=== PATIENT | female | born 1945 | race Caucasian/White ===

== ENCOUNTER 2018-11-11 08:45 | Emergency (ER) | payer MEDICARE, OTHER ==
[~2018-11-11] VITALS: Wt 79.5 kg
[2018-11-11 08:48] VITALS: BP 182/84; PULSE 83; RESP 20
[2018-11-11] MEDS ORDERED: BENZ-6 PO (09:42)
[2018-11-11] MEDS ORDERED: AMOX500C2 PO (09:42)
[2018-11-11] MEDS ORDERED: PROM6.2515 PO (09:42)
[2018-11-11] MEDS ORDERED: PSEU-79 PO (09:42)
--- NOTE | 2018-11-11 14:05 | ERD ---
ER Documentation Chief Complaint Chief Complaint cough for the past 6 wks. orthopnea and mucus. no releif with otc meds HPI 73-year-old female presenting with a cough for the last 6 weeks. Patient is states that she has lots of congestion. She denies any fevers. Patient has a serious case of OCD and she is very adamant about not taking excessive medications. Patient is concerned about missing the emergency room and she is resistant to many medications. She has lots of sensitivities and states that her OCD has worsened. She denies any suicidal homicidal ideations. Denies medical problems. Adverse reaction to the Z-Dmaian and does not want medication. Social history denies. Surgical history denies ROS All systems reviewed and are negative except as per history of present illness. Medications Home Meds Active Scripts Pseudoephedrine Hcl* (Suphedrin*) 30 Mg Tablet, 30 MG PO Q6 PRN for CONGESTION, #30 TAB Prov:SELAM DUCKWORTH PA-C 11/11/18 Amoxicillin* (Amoxicillin*) 500 Mg Cap, 500 MG PO BID for 7 Days, CAP Prov:SELAM DUCKWORTH PA-C 11/11/18 Promethazine Hcl* (Promethazine Hcl* Syrup) 6.25 Mg/5 Ml Syrup, 6.25 MG PO Q6H PRN for COUGH, #100 ML Prov:SELAM DUCKWORTH PA-C 11/11/18 Benzonatate* (Tessalon Perle*) 100 Mg Capsule, 100 MG PO Q8H PRN for COUGH, #30 CAP Prov:SELAM DUCKWORTH PA-C 11/11/18 PMhx/Soc Medical and Surgical Hx: pt denies Medical Hx, pt denies Surgical Hx Hx Alcohol Use: No Hx Substance Use: No Hx Tobacco Use: No Smoking Status: Never smoker FmHx Family History: No diabetes, No coronary disease, No other Physical Exam Vitals Vital Signs Date Temp Pulse Resp B/P (MAP) Pulse Ox O2 O2 Flow FiO2 Time Delivery Rate 11/11/18 97.9 83 20 182/84 97 08:48 (116) Physical Exam GENERAL: The patient is well-appearing, well-nourished, in no acute distress HEENT: Atraumatic. Conjunctivae are pink. Pupils equal, round, and reactive to light. There is no scleral icterus. Tympanic membranes clear bilaterally. Oropharynx clear. NECK: C-spine is soft and supple. There is no meningismus. There is no cervical lymphadenopathy. CHEST: Clear to auscultation bilaterally. There are no rales, wheezes or rhonchi. HEART: Regular rate and rhythm. No murmurs, clicks, rubs or gallops. Procedures/MDM MDM: 73-year-old female presents with cough. I have low suspicion for pneumonia. I have low suspicion for pertussis. Patient likely has viral syndrome but given she is had symptoms for the last 6 weeks I will treat antibiotics. I have low suspicion for respiratory distress or hypoxia. I have low suspicion for congestive heart failure cardiac abnormalities. I have low suspicion for PE. Patient is discharged with strict ER precautions and told to follow-up with primary care within 1 to 2 days for close evaluation. All questions answered at discharge Departure Diagnosis: Primary Impression: Cough Condition: Stable Patient Instructions: Cough, Chronic, Uncertain Cause (Child) Referrals: [facility] YOU HAVE RECEIVED A MEDICAL SCREENING EXAM AND THE RESULTS INDICATE THAT YOU DO NOT HAVE A CONDITION THAT REQUIRES URGENT TREATMENT IN THE EMERGENCY DEPARTMENT. FURTHER EVALUATION AND TREATMENT OF YOUR CONDITION CAN WAIT UNTIL YOU ARE SEEN IN YOUR DOCTORS OFFICE WITHIN THE NEXT 1-2 DAYS. IT IS YOUR RESPONSIBILITY TO MAKE AN APPOINTMENT FOR FOLOW-UP CARE. IF YOU HAVE A PRIMARY DOCTOR --you should call your primary doctor and schedule an appointment IF YOU DO NOT HAVE A PRIMARY DOCTOR YOU CAN CALL OUR PHYSICIAN REFERRAL HOTLINE AT IF YOU CAN NOT AFFORD TO SEE A PHYSICIAN YOU CAN CHOSE FROM THE FOLLOWING [facility] [id number] [facility] [id number] [facility] [facility] [address] [facility] [address] [facility] [id number] [facility] [facility]. [address] Additional Instructions: FOLLOW UP WITH YOUR PRIMARY CARE PHYSICIAN TOMORROW.Return to this facility if you are not improving as expected. SELAM DUCKWORTH PA-C Nov 11, 2018 14:04
== END 2018-11-11 10:00 | disposition home or self-care (01) ==
LOC: FTE 08:45
DX: R05 Cough (principal)
CPT/HCPCS: 99283